=== PATIENT | male | born 1935 ===

== ENCOUNTER 2016-08-10 11:16 | Day surgery (SDC) | payer MEDICARE ==
[2016-08-05 23:37] VITALS: BMI 29.5
[2016-08-10] MEDS ORDERED: Iodixanol 320 MG/ML 200 ML BOTTLE IV ONE (11:57)
[2016-08-10] MEDS ORDERED: Iodixanol 320 MG/ML 100 ML BOTTLE IV ONE ×3 (11:57→13:04)
[2016-08-10] MEDS ORDERED: Lidocaine 2% Inj (20ml) ONE (11:58)
[2016-08-10] MEDS ORDERED: Midazolam 2 MG/2 ML VIAL ONE (12:09)
--- NOTE | 2016-08-10 13:56 | CP.SDSHP ---
Same Day Surgery H & P - History Proposed Procedure: see Kellie consult. no change - Allergies Allergies: Allergies mushroom Allergy (Verified 08/06/16 14:46) RASH Short Stay Discharge - Short Stay Discharge Admitting Diagnosis/Reason for Visit: PVD Disposition: HOME/ ROUTINE
[2016-08-10] MEDS ORDERED: Sodium Chloride 0.45% 1,000 ML IV SCH (14:00)
[2016-08-10 15:33] VITALS: RESP 18; O2SAT 100
--- NOTE | 2016-08-10 17:13 | OP ---
PROCEDURE DATE: 08/10/2016 PERFORMING PHYSICIAN: Stephen Villanueva MD. REFERRING PHYSICIAN: Toan Meza MD; and Barrera Aguilar DPM. PREOPERATIVE DIAGNOSIS: Peripheral vascular disease with ulcer, left foot. POSTOPERATIVE DIAGNOSIS: Peripheral vascular disease with ulcer, left foot. PROCEDURES PERFORMED: Retrograde access right common femoral artery, selective catheter placement in the right peroneal artery via contralateral approach, abdominal aortography with bilateral iliofemor al runoff, bilateral lower extremity angiography, balloon angioplasty with drug-eluting stent placeme nt in the left tibioperoneal trunk and drug-coated balloon angioplasty distal left popliteal artery. COMPLICATIONS: None. HISTORY: The patient is an 81-year-old male with a past medical history of hypertension, hypercholes terolemia, aortic stenosis who presents with cellulitis and ulcer of the left foot. Noninvasive imag ing revealed severe stenosis of the distal left popliteal artery. The patient is referred for periph eral angiography. DESCRIPTION OF PROCEDURE: After obtaining informed consent, the patient was prepped and draped in th e usual sterile fashion. The right groin was anesthetized with 2% lidocaine solution. A 5-Somali sh eath was inserted into the right common femoral artery via modified Seldinger technique. An OmnDSI MET-TECHs h catheter was advanced to the infrarenal abdominal aorta. Abdominal aortography was performed. The catheter was positioned at the iliac bifurcation. Bilateral iliofemoral runoff was performed. A st iff-angled Glidewire was advanced from the contralateral right common femoral artery and allowed for selective catheter placement to the left superficial femoral artery. The sheath was exchanged and in tervention was performed, described separately below. FINDINGS: The infrarenal abdominal aorta is free of aneurysm or dissection. Bilateral renal arterie s arise normally and are free of significant atherosclerosis. There is no significant inflow stenosi s. The superficial femoral arteries have mild eccentric plaque. There is moderate stenosis of the r ight mid popliteal artery. In the left leg, there is a 90% stenosis of the distal left popliteal art lucinda. The anterior tibial and posterior tibial arteries are occluded 100%. Distal vessels collateral ize via the peroneal artery. The peroneal artery provides a single vessel runoff to the left foot. The distal popliteal artery has 90% stenosis. The tibioperoneal trunk has a 95% stenosis. INTERVENTION: Decision was made to perform endovascular intervention of the left popliteal artery an d the left tibioperoneal trunk. The sheath was exchanged for a 6 x 45 Cook sheath and now the heparin was given to achieve a therapeu tic activated clotting time. An Where I've Been ES guidewire was advanced to the distal popliteal art lucinda. A 0.018 inch Trailblazer catheter was advanced over the guidewire and selectively placed in the left popliteal artery. The guidewire was manipulated and advanced to the distal left peroneal arter y. The Trailblazer catheter was removed. Angioplasty was then performed with a 3.0 x 15 mm balloon of the tibioperoneal trunk and the distal left popliteal artery. The balloon was removed. A Xience 3.5 x 18 mm drug-eluting stent was placed in the left tibioperoneal trunk with excellent stent expans ion. Attention was then paid to the distal left popliteal artery. The Lutonix 4 x 60 mm drug-coated balloon was positioned across the stenotic area in the distal left popliteal artery. A prolonged dr ug-coated balloon angioplasty was then performed. The balloon was inflated for a total of 2 minutes. The balloon was deflated and removed. Final angiography revealed widely patent popliteal artery as well as a widely patent drug-eluting stent in the left tibioperoneal trunk. CONCLUSION: Successful endovascular intervention of the popliteal artery and the tibioperoneal trunk . PLAN: The patient will continue with aspirin and Plavix. He will be transferred to [facility]. Stephen Villanueva MD cc: [id number] TT: 08/10/2016 17:12:01 hol[place]
== END 2016-08-10 14:30 | disposition short-term general hospital (02) ==
LOC: C.CATHLAB 11:16
PROVIDERS: ATTEND Internal Medicine Cardiovascular Disease
DX: I70.202 Unspecified atherosclerosis of native arteries of extremities, left leg (principal); I82.412 Acute embolism and thrombosis of left femoral vein; I10 Essential (primary) hypertension; L03.116 Cellulitis of left lower limb
CPT/HCPCS: 36247; 37226; 37231; 75625; 75716; 75774; 85347; C1725; C1760; C1766; C1769; C1874; C1887; C2623; J0360; J1644; J2250; J7030; Q9966; Q9967